=== PATIENT | female | born 1950 | race Hispanic/Latino ===

== ENCOUNTER → 2017-06-01 | Outpatient (CLI) | payer OTHER, MEDICARE ==
[~2017-06-01] MED LIST: ASPI-1181 PO; CHOL100040 PO; INSLAN SQ; METF10004 PO; OXYB5TAB10 PO; RIVA20TA PO; SIMV40TA59 PO; VALS1TAB81 PO; VITA400C25 PO
== END | disposition home or self-care (01) ==
LOC: SHCH 10:10
PROVIDERS: ATTEND Internal Medicine Cardiovascular Disease
DX: I65.21 Occlusion and stenosis of right carotid artery (principal)
CPT/HCPCS: 93880